=== PATIENT | male | born 1960 | race Caucasian/White ===

== ENCOUNTER 2016-11-09 21:01 | Emergency (ER) | payer BC, OTHER ==
[2016-11-09 21:05] VITALS: BP 150/84; PULSE 63; TEMP 98.1; BMI 38.0
[2016-11-09 22:02] LABS: BASOPHIL 0.8 % (0-2.0); EOSINOPHIL 7.8 % (0-4.5); MCH 29.1 pg (25.7-33.7); MCHC 33.6 g/dl (32.0-35.9); MEAN CELL VOLUME 86.8 fl (80-96); MEAN PLT VOLUME 7.7 fl (7.5-11.1); NEUTROPHILS 59.6 % (42.8-82.8); PLATELET COUNT 182 K/MM3 (134-434); WHITE BLOOD COUNT 7.8 K/mm3 (4.0-10.8)
[2016-11-09 22:15] LABS: ALBUMIN 3.9 g/dl (3.5-5.0); ALK PHOS 57 U/L (32-92); ANION GAP 7 (8-16); BILIRUBIN,TOTAL 0.6 mg/dl (0.2-1.0); CALCIUM 9.5 mg/dl (8.4-10.2); CO2 27 mmol/L (22-28); COCKROFT - GAULT 120.27; CREATININE 1.1 mg/dl (0.6-1.3); GLUCOSE,RANDOM 107 mg/dl (74-106); SGOT/AST 25 U/L (10-42); SGPT/ALT 33 U/L (10-40); TOT PROT 7.6 g/dl (6.4-8.3)
--- NOTE | 2016-11-09 22:28 | PDOC ---
History of Present Illness - General Chief Complaint: Redness To Affected Area Stated Complaint: CELLULITIS Time Seen by Provider: 11/09/16 21:07 - History of Present Illness Initial Comments: This 56-year-old man with a history of hypertension/hyperlipidemia/sarcoidosis and psoriasis presents with left hand cellulitis. Patient has a history of biting off cuticle of his left fourth finger 5 days ago. Over the next few days his finger became more inflamed. He was seen on November 07 in urgent care ([place]) by Dr. Faustin. At that time, abscess was incised and drainage sent for culture. Patient was prescribed Augmentin. The following day (yesterday), after taking one dose of Augmentin, he was seen in the urgent care again because of increased swelling and redness of the hand. Because of the progression of the infection while on Augmentin, Augmentin was stopped and clindamycin was started. Today, results of the wound culture returned with staph aureus strain being resistant to clindamycin but sensitive to Augmentin. There was some increase in redness/swelling in the hand and patient was referred to ER. Plan was to stop clindamycin and resume Augmentin. Patient states that he has not yet taken Augmentin so that he has only taken one dose of the antibiotic since it was prescribed.. Patient denies fever/chills; he has had no significant pain on movement of his hand. Although he has had cellulitis secondary to paronychia in the past, he has never previously needed admission. He has a history of MRSA in the past, treated as an outpatient. Past History - Past Medical History Allergies/Adverse Reactions: Allergies Allergy/AdvReac Type Severity Reaction Status Date / Time No Known Allergies Allergy Verified 01/03/15 04:36 Home Medications: Ambulatory Orders Levothyroxine [Synthroid] 150 mcg PO DAILY 03/30/12 Tiotropium [place] [Spiriva] 1 inh IH DAILY 03/30/12 Aspirin [ASA -] 81 mg PO DAILY 01/03/15 Clonidine HCl 0.2 mg PO DAILY 01/03/15 Albuterol Sulfate Inhaler - [Ventolin Hfa Inhaler -] 1 - 2 inh PO PRN PRN Amoxicillin/Potassium Clav [Augmentin 875-125 Tablet] 1 each PO BID 11/09/16 Budesonide/Formeterol Fumarate [SYMBICORT 160/4.5mcg -] 2 inh PO BID 11/09/16 Lisinopril [Prinivil] 20 mg PO DAILY 11/09/16 Losartan/Hydrochlorothiazide [Losartan-Hctz 100-25 mg Tab] 1 each PO DAILY 11/09 HTN: Yes Hypercholesterolemia: Yes Thyroid Disease: Yes (HYPOTHYROID) Other medical history: SARCOIDOSIS, SLEEP APNEA, PSORIASIS - Immunization History Td Vaccination: Yes - Psycho/Social/Smoking Cessation Hx Anxiety: No Suicidal Ideation: No Smoking Status: No Smoking History: Never smoked Number of Cigarettes Smoked Daily: 0 Cigars Per Day: 0 Hx Alcohol Use: No Drug/Substance Use Hx: No Substance Use Type: None Hx Substance Use Treatment: No Review of Systems - Review of Systems Able to Perform ROS?: Yes Comments:: 12 point review of systems is negative except for what is noted in the history of present illness *Physical Exam - Vital Signs Last Vital Signs Temp Pulse Resp BP Pulse Ox 98.1 F 63 16 150/84 99 11/09/16 21:02 11/09/16 21:02 11/09/16 21:02 11/09/16 21:02 11/09/16 21:02 - Physical Exam Comments: GENERAL: Adult male, alert and oriented 3 in no acute distress Vital signs as noted HEAD: Normal with no signs of trauma. EYES: PERRLA, EOMI, sclera anicteric, conjunctiva clear. ENT: Ears normal, nares patent, oropharynx clear without exudates. Dry mucous membranes. NECK: Normal range of motion, supple without lymphadenopathy, JVD, or masses. LUNGS: Breath sounds equal, clear to auscultation bilaterally. No wheezes, and no crackles. HEART:Regular rate and rhythm, normal S1 and S2 without murmur, rub or gallop. ABDOMEN:.normal bowel sounds No guarding,tenderness or rebound.No masses No distention. EXTREMITIES: Left handfourth finger open wound of dorsum distal phalanx with surrounding erythema; no fluctuance or discharge Moderate erythema/edema of dorsum of left hand; no fluctuance noted NO significant pain with passive or active movement of fingers No lymphangitic streaking evident Remainder of the extremity exam was normal except for psoriatic lesions bilateral volar forearms. NEUROLOGICAL: Cranial nerves II through XII grossly intact. Normal speech. No focal neurological deficits. MUSCULOSKELETAL: Back non-tender to palpation, no CVA tenderness Wound culture of distal left fourth finger obtained. ED Treatment Course - LABORATORY CBC & Chemistry Diagram: 11/09/16 21:50 11/09/16 21:50 - ADDITIONAL ORDERS Additional order review: Laboratory Results 11/09/16 21:50 Sodium 137 Potassium 3.6 Chloride 103 Carbon Dioxide 27 Anion Gap 7 L BUN 22 H Creatinine 1.1 Creat Clearance w eGFR > 60 Random Glucose 107 H Calcium 9.5 Total Bilirubin 0.6 AST 25 ALT 33 D Alkaline Phosphatase 57 Total Protein 7.6 Albumin 3.9 11/09/16 21:50 RBC 4.84 MCV 86.8 MCHC 33.6 RDW 13.0 MPV 7.7 Neutrophils % 59.6 Lymphocytes % 21.0 Monocytes % 10.8 H Eosinophils % 7.8 H Basophils % 0.8 Medical Decision Making - Medical Decision Making This 56-year-old man presents with cellulitis of the left hand. Patient has been treated at urgent care over the last several days and wound culture obtained at the urgent care has revealed staph aureus (sensitive to amoxicillin/ clavulanate and resistant to clindamycin). Laboratory evaluation including CBC/chemistry profile and lactic acid was drawn. White blood cell count is normal at 7800. Remainder of the blood count also is normal. Chemistry profile is essentially normal with a lactic acid of 1.4. Since patient does not appear toxic with no clear evidence of systemic infection is present and no evidence of tenosynovitis at this point, patient will be given a 3 g IV dose of ampicillin/sulbactam (which staph aureus isolated is also sensitive to). Patient will continue Augmentin 875/125 twice a day as prescribed and follow-up with Dr. Faustin. He should return to the emergency room immediately if he develops fever, increase in pain/swelling and especially if he has increasing pain with movement of his fingers. He was also given referral information for Dr. Katz, travel money advisor for hand surgery today. He should make an appointment to be seen by him within the next 2-3 days *DC/Admit/Observation/Transfer Diagnosis at time of Disposition: Cellulitis of hand, left - Discharge Dispostion Disposition: HOME Condition at time of disposition: Stable - Referrals Referrals: STAFF,NOT ON [Primary Care Provider] - Antonio Katz MD [Staff Physician] - 3 days - Patient Instructions Printed Discharge Instructions: DI for Cellulitis -- Adult Additional Instructions: Continue Augmentin as previously prescribed Continue dressing changes to the left fourth finger as you have been doing Follow-up with Dr. Faustin within the next [address] Katz's office on Friday to make an appointment within 3-4 days Return to ER immediately if you have worsening pain with movement of fingers/ red streaking/fever
[2016-11-09] MEDS ORDERED: AMPICILLIN NA/SULBACTAM NA 3 GM in SODIUM CHLORIDE 100 ML IVPB ONE (22:53)
[2016-11-09] MEDS ORDERED: AMPICILLIN NA/SULBACTAM NA 3 GM VIAL ONE (23:02)
== END 2016-11-10 00:34 | disposition home or self-care (01) ==
LOC: FER 21:01
DX: Z86.14 Personal history of Methicillin resistant Staphylococcus aureus infection (principal); E03.9 Hypothyroidism, unspecified; I10 Essential (primary) hypertension; D86.9 Sarcoidosis, unspecified; L03.114 Cellulitis of left upper limb
CPT/HCPCS: 36415; 80053; 83605; 85025; 87040; 87070; 87186; 87205; 99282-25

== ENCOUNTER 2022-01-03 14:00 | Emergency (ER) | payer BC, OTHER ==
[2022-01-03 14:12] VITALS: TEMP 98.2; BMI 40.1
[2022-01-03] MEDS ORDERED: ALBUTEROL SO4 HFA INHALER IH ONE (14:53)
[2022-01-03] MEDS ORDERED: ALBUTEROL SO4 2.5/IPRATROPIUM 0.5 INH SOL 3 ML VIAL.NEB. NEB ONE ×4 (14:57→17:11)
[2022-01-03 15:52] VITALS: BP 160/97; PULSE 82
== END 2022-01-03 17:45 | disposition home or self-care (01) ==
LOC: FER 14:00
PROC: 3E0F7GC Introduction of Other Therapeutic Substance into Respiratory Tract, Via Natural or Artificial Opening (ICD-10-PCS; principal; 2022-01-03)
DX: R05.9 Cough, unspecified (principal)
CPT/HCPCS: 0241U-QW; 71046-TC-FY; 99284-25